=== PATIENT | male | born 1985 | race Caucasian/White ===

== ENCOUNTER 2018-02-04 17:21 | Emergency (ER) | payer BC, OTHER, SELFPAY ==
[2018-02-04 17:23] VITALS: BP 148/102; PULSE 107; RESP 16; TEMP 36.7; O2SAT 96; BMI 34.3
--- NOTE | 2018-02-04 17:56 | CT_ITS ---
STUDY: CT ABDOMEN AND PELVIS WITH CONTRAST REASON FOR EXAM: Male, 32 years old. Abdominal pain. Rectal bleeding RADIATION DOSAGE (If Supplied By Facility): CTDIvol = ( 24.18 ) mGy, DLP = ( 1515.28 ) mGycm TECHNIQUE: Transaxial images were obtained from the dome of the diaphragm to the symphysis pubis with oral contrast. 100 ml of Isovue 300 contrast was administered. Sagittal and coronal images were reconstructed. Individualized dose optimization techniques were used for this CT. COMPARISON: None. FINDINGS: The visualized lung bases are unremarkable. The visualized portions of the heart are within normal limits. Normal liver. Normal gallbladder and extrahepatic biliary system. There is mild splenomegaly. Normal pancreas. Normal bilateral adrenal glands. Normal right kidney. Normal left kidney. Normal visualized stomach. Normal small intestine. There is mild diffuse wall thickening of the descending colon. The appendix is visualized and appears normal. Normal abdominal aorta. Normal inferior vena cava. Normal retroperitoneum. Normal urinary bladder. There is no free fluid in the abdomen or pelvis. Normal abdominal wall. Normal osseous structures. CT/Abdomen/Pelvis WITH Contrast IMPRESSION: Colitis on the left could be infectious or inflammatory. No obstruction. Splenomegaly. Electronically Signed: Myron Narvaez MD at 20:28 EST , Service support ,
--- NOTE | 2018-02-04 17:58 | ED.VISSUMM ---
- ER Visit Summary Date of Service: 02/04/18 Chief Complaint: Abdominal pain, bloody stools History of Present Illness: The patient is a 32 M patient states awoken this morning right side abdominal pain with loose stools. States total 4, last time prior to arrival states was bloody. There is no clots. States the chills and sweats. No abdominal surgeries. No anticoagulation medicines. States occasional sharp sensations in the right side. Denies any family history of history of any Crohn's disease or ulcerative colitis. No similar symptoms in the past. States he did drink alcohol last night. No past medical history. Physical Examination: General: Alert and oriented ?3, no acute distress HEENT: Normocephalic, atraumatic. Moist mucosa membranes Neck: supple, nontender. Cardiovascular: Regular rate and rhythm, no murmurs Respiratory: Normal breath sounds, symmetric, no distress Abdomen: Soft,mild right side, nondistended. Negative Mixon's or McBurney's tenderness. No rebound or guarding Rectal: No hemorrhoids, no gross blood on finger. Guaiac positive Extremities: Nontender, no edema, pulses intact ?4 Neuro: no focal neurological deficits. Test Results: White count 7.7 hemoglobin 15.3. Creatinine 0.87. Lipase 75. Liver enzymes slightly elevated ALT 76 AST 39. Hepatitis panel sent and pending. CT scan with contrast notes thickening descending colon concerns for infectious versus inflammatory colitis. Emergency Department Course and Treatment: Patient nonsurgical abdomen. Discussed right side abdominal pain workup to rule out thickening of bowels for concerns for Crohn's versus ulcerative colitis. Later spoke that his uncle does have Crohn's disease. Labs are stable. He is Hemoccult positive. CT scan did note thickening descending colon. He will be placed on Cipro and Flagyl. Discussed alcohol hold while on Flagyl. He is given follow-up with Dr. Espinoza on-call surgeon for outpatient reevaluation and follow-up colonoscopy. Able to obtain a stool sample which was sent for evaluation. Treatment Plan: [] Disposition: Discharge Impression: 1. Abdominal pain 2. Colitis This note was generated with [employer] dictation software. It may contain incorrect words, spelling, and punctuation that were not noted in review of the chart prior to signing ED Disposition - Plan for ED Patient: Disposition: Home or Assisted Living Chief Complaint: Abd Pain Diagnosis: Colitis, Abdominal pain Instructions: ED Diverticulitis Prescriptions: Oxycodone HCl/Acetaminophen [Percocet 5/325] 1 tablet PO Q6H PRN PRN 3 Days #12 tablet PRN Reason: Pain Metronidazole [Flagyl] 500 mg PO Q8H #30 tablet Ciprofloxacin [Cipro] 500 mg PO BID #20 tablet Referrals: Care Physician,No Primary [Primary Care Provider] - Broderick Meza MD [STAFF PHYSICIAN] - 5-7 Days Additional Instructions: Thickening descending colon. Take antibiotics as prescribed. Follow-up with Dr. Meza outpatient reevaluation. Withhold alcohol while on Flagyl.
[2018-02-04] MEDS: 0.9% Normal Saline 1,000 ML 125 ML IV (18:11)
[2018-02-04 18:25] LABS: Absolute Lymphocyte Count 1.48 X10^3/ul (0.83-4.51); Absolute Neutrophil Count 5.4 X10^3/uL (2.0-7.7); Basophil# 0.02 X10^3/uL; Basophil% 0.3 % (0-1); Eosinophil# 0.18 X10^3/uL; Eosinophils% 2.3 % (0-5); Hematocrit 43.6 % (40-54); Hemoglobin 15.3 g/dl (13.0-16.5); Lymphocyte # 1.48 X10^3/ul (4.0); Lymphocyte % 19.3 % (19-41); Mean Corp Hgb Conc 35.1 g/gl (32-36); Mean Corpuscular Hgb 30.8 pg (27.0-32.0); Mean Corpuscular Volume 87.9 fL (80-94); Mean Platelet Vol. 10.4 fl (6.2-12.0); Monocyte# 0.56 X10^3/uL; Monocyte% 7.3 % (0-10); Neutrophil # 5.42 X10^3/uL (2.7-7.7); Neutrophil % 70.7 % (47-70); Platelet Count 154 K/mm3 (150-450); RBC Distribution Width CV 12.8 % (11.6-14.6); RBC Distribution Width SD 41.1 fl (35.1-43.9); Red Blood Count 4.96 M/mm3 (4.6-6.2); White Blood Count 7.7 K/mm3 (4.4-11.0)
[2018-02-04 18:37] LABS: ALB/GLOB Ratio 1.1 RATIO (0.9-2.4); AST(SGOT) 39 U/L (15-37); Alanine Aminotransfer ALT/SGPT 76 U/L (16-61); Albumin, Serum 3.9 g/dL (3.2-5.0); Alkaline Phosphatase 67 U/L (45-117); Anion Gap 7 (5-15); BUN 14 mg/dL (7-18); Calcium,Total 8.5 mg/dL (8.5-10.1); Chloride 105 mmol/L (98-107); Creatinine, Serum 0.87 mg/dL (0.70-1.30); EST Glomerular Filtration Rate 106 mL/min (>60); Est Glom Filt Rate - Afr Amer 129 mL/min (>60); Estimated Creatinine Clearance 144.34 ml/min; Globulin 3.5 g/dL (2.2-4.2); Glucose 131 mg/dL (74-106); Lipase 75 U/L (73-393); Potassium 3.6 mmol/L (3.5-5.1); Protein, Total 7.4 g/dL (6.4-8.2); Sodium Level 139 mmol/L (136-145)
[2018-02-04 18:41] LABS: POSITIVE COUNT NO; POSITIVE DIFFERENTIAL NO; POSITIVE MORPHOLOGY NO
[2018-02-04 19:03] LABS: International Normalized Ratio 1.1; Prothrombin Time (Protime)PT. 13.7 SECONDS (11.7-14.9)
[2018-02-04 19:04] LABS: Partial Thromboplast Time 25.8 Seconds (24.1-36.2)
[2018-02-04] MEDS: Morphine 4 MG/ML Syringe IV (20:33)
[2018-02-04 20:34] VITALS: BP 163/114; PULSE 94; RESP 18; O2SAT 95
[2018-02-04] MEDS: Ciprofloxacin 500 MG Tablet PO (21:05)
[2018-02-04] MEDS: metroNIDAZOLE 500 MG Tablet PO (21:06)
[2018-02-04 21:14] VITALS: RESP 18
[2018-02-06 06:07] LABS: HEPATITIS B SURFACE AG Negative (Negative); Hepatitis A IgM Antibody Negative (Negative); Hepatitis B Core AB IgM Negative (Negative)
[2018-02-06 10:22] LABS: Hep C Antibodies <0.1 s/co ratio (0.0-0.9)
== END 2018-02-04 21:14 | disposition home or self-care (01) ==
PROVIDERS: Emergency Provider Emergency Medicine
DX: K52.9 Noninfective gastroenteritis and colitis, unspecified (principal); R10.9 Unspecified abdominal pain; Z87.891 Personal history of nicotine dependence
CPT/HCPCS: 36415; 74177; 80053; 80074; 82274; 83690; 85025; 85610; 85730; 96361; 96374; 99283; J7030; Q9967; A4216

== ENCOUNTER 2019-04-11 07:38 | Emergency (ER) | payer BC, SELFPAY ==
[2019-04-11 07:39] VITALS: BP 144/95; PULSE 100; RESP 17; TEMP 36.7; O2SAT 96; BMI 37.5
--- NOTE | 2019-04-11 08:05 | CT_ITS ---
STUDY: CT ABDOMEN AND PELVIS WITH CONTRAST REASON FOR EXAM: Male, 33 years old. LOW ABDOMEN PAIN X TODAY RADIATION DOSAGE (If Supplied By Facility): CTDIvol = ( 15.41 ) mGy, DLP = ( 1450.15 ) mGycm TECHNIQUE: Transaxial images were obtained from the dome of the diaphragm to the symphysis pubis without oral contrast. Oral and amp; IV Gastrografin and amp; 100mL Isovue-300 was administered. Sagittal and coronal images were reconstructed. Individualized dose optimization techniques were used for this CT. COMPARISON: Comparison is made with prior study dated February 04, 2018. FINDINGS: Minimal degree of dependent bibasilar atelectasis. The visualized portions of the heart are within normal limits. There is decreased attenuation of the liver consistent with steatosis. Mild hepatomegaly. Normal gallbladder and extrahepatic biliary system. There is mild splenomegaly. Normal pancreas. Normal bilateral adrenal glands. Normal right kidney. Normal left kidney. Normal visualized stomach. Normal small intestine. Normal colon. The appendix is visualized and appears normal. Small lymph nodes are seen within the mesentery in the right lower quadrant. This may represent mesenteric adenitis. Normal abdominal aorta. Normal inferior vena cava. Normal retroperitoneum. Normal urinary bladder. Normal abdominal wall. Normal osseous structures. CT/Abdomen/Pelvis WITH Contrast IMPRESSION: Mild hepatosplenomegaly. Diffuse fatty infiltration of the liver. Small lymph nodes are seen in the mesentery in the right lower quadrant suggestive of mild mesenteric adenitis. Electronically Signed: Shad Salazar, at 10:08 EST , Service support ,
--- NOTE | 2019-04-11 08:07 | ED.DCSUM_ITS ---
History of Present Illness Chief Complaint: Abd Pain Informant: Patient Onset: Today Context: Gradual Onset Timing: Waxes and wanes Current Severity: Mild Maximum Severity: Severe Narrative: Patient presents with intermittent abdominal cramping since 3 AM this morning. He states he initially had difficulty having a bowel movement. He did have a solid stool followed by 2 rounds of diarrhea. He then started passing blood with the stool. Patient denies fever or chills. No prior abdominal surgeries. Patient was seen just over a year ago with similar symptoms and diagnosed with colitis. He did follow-up for colonoscopy following this and it was unremarkable. Past Medical History - Allergies and Home Meds Allergies/Adverse Reactions: Allergies No Known Allergies Allergy (Verified 04/11/19 07:39) Primary Care Physician: [facility] [Primary Care Provider] - Prior records reviewed: Yes Past Medical History: None Lives: Spouse/ Significant Other Smoking Status: Former smoker Review of Systems General: Denies: Chills, Fever Eyes: Denies: Visual changes - bilaterally ENT: Denies: Bilateral ear pain Cardiovascular: Denies: Chest pain Respiratory: Denies: Dyspnea Gastrointestinal: Reports: Abdominal pain, Diarrhea, Hematochezia Genitourinary: Denies: Dysuria Musculoskeletal: Denies: Back pain, Extremity Pain Skin: Denies: Rash Neurological: Denies: Headache Hematologic: Denies: Easy bruising Allergy: Denies: Uticaria Physical Exam Vital Signs/Narrative: Vital Signs Temp Pulse Resp BP Pulse Ox 04/11/19 07:39 98.0 F 100 17 144/95 H 96 Inital Vital Signs reviewed: Yes General: Well nourished, Well developed Head: Normocephalic ENT: Moist mucous membranes Neck: Supple Cardiovascular: Regular rate, Regular rhythm Respiratory: No distress, CTA bilaterally Abdomen: Soft, Tender - Minimal tenderness in the suprapubic and left lower quadrant., Hypoactive bowel sounds. Negative for: Guarding, Rebound tenderness Extremities: Nontender Skin: Normal color Neurological: Alert, Oriented x3 Psychological: Normal affect Diagnostic/Tx/Re-eval Impressions Abdomen/Pelvis CT 04/11/19 08:05 IMPRESSION: Mild hepatosplenomegaly. Diffuse fatty infiltration of the liver. Small lymph nodes are seen in the mesentery in the right lower quadrant suggestive of mild mesenteric adenitis. Electronically Signed: Shad Salazar, at 10:08 EST , Service support , 04/11/19 08:05 Abdomen/Pelvis WITH Contrast [CT] Stat Laboratory Results 04/11/19 04/11/19 07:55 07:55 WBC 12.8 H RBC 5.33 Hgb 16.0 Hct 46.0 MCV 86.3 MCH 30.0 MCHC 34.8 RDW Std Deviation 39.3 RDW Coeff of Johnny 12.7 Plt Count 178 MPV 10.5 Immature Gran % (Auto) 0.300 Neut % (Auto) 81.6 H Lymph % (Auto) 10.2 L Waldo % (Auto) 6.3 Eos % (Auto) 1.1 Baso % (Auto) 0.5 Absolute Neuts (auto) 10.4 H Absolute Lymphs (auto) 1.30 Nucleated RBC % 0 Sodium 140 Potassium 4.1 Chloride 109 H Carbon Dioxide 26.0 Anion Gap 5 BUN 16 Creatinine 0.87 Estim Creat Clear Calc 146.88 Est GFR (MDRD) Af Amer 129 Est GFR (MDRD) Non-Af 106 BUN/Creatinine Ratio 18.4 Glucose 143 H Calcium 9.1 - Medical Decision Making The morphine, Zofran, Bentyl, and IV fluids. On repeat evaluation patient states pain is returning although had been well controlled. Test results are discussed with him. At this time patient will be given Bentyl and Molena for home. I will write him a prescription for antibiotics but he will take a [id number] approach. If he continues to have diarrhea with blood in his stool over the next 2 days he is to the antibiotics and follow-up closely. Patient is comfortable with this plan. ED Disposition - Plan for ED Patient: Disposition: Home or Assisted Living Diagnosis: Mesenteric adenitis Instructions: Adenitis, Mesenteric Prescriptions: Dicyclomine HCl [Bentyl] 20 mg PO TIDAC #20 cap Transmission Status: Pending to [facility] Ciprofloxacin [Cipro] 500 mg PO BID #14 tablet metroNIDAZOLE [Flagyl] 500 mg PO Q6H #40 tablet Hydrocodone Bitart/Apap 5-325 [Molena 5MG-325MG] 1 tablet PO Q6H PRN PRN 3 Days #10 tablet PRN Reason: Pain Transmission Status: Received by [facility] [facility]errals[facility] [Primary Care Provider] - 3-5 Days if not improving
[2019-04-11 08:21] LABS: Absolute Neutrophil Count 10.4 X10^3/uL (2.0-7.7); Basophil# 0.06 X10^3/uL; Basophil% 0.5 % (0-1); Eosinophil# 0.14 X10^3/uL; Eosinophils% 1.1 % (0-5); Lymphocyte % 10.2 % (19-41); Mean Corp Hgb Conc 34.8 g/dL (32-36); Mean Corpuscular Volume 86.3 fL (80-94); Mean Platelet Vol. 10.5 fl (6.2-12.0); Monocyte# 0.81 X10^3/uL; Monocyte% 6.3 % (0-10); NRBC Flagged by Analyzer 0 % (0-5); Neutrophil # 10.42 X10^3/uL (2.7-7.7); Neutrophil % 81.6 % (47-70); Platelet Count 178 K/mm3 (150-450); RBC Distribution Width CV 12.7 % (11.6-14.6); RBC Distribution Width SD 39.3 fl (35.1-43.9); Red Blood Count 5.33 M/mm3 (4.6-6.2); White Blood Count 12.8 K/mm3 (4.4-11.0)
[2019-04-11] MEDS: Ondansetron 4 MG/2 ML Vial IV (08:24)
[2019-04-11] MEDS: Morphine 4 MG/ML Syringe IV ×2 (08:24→10:51)
[2019-04-11] MEDS: 0.9% Normal Saline 1,000 ML 1000 ML IV (08:25)
[2019-04-11] MEDS: 0.9% Normal Saline 1,000 ML 150 ML IV (08:25)
[2019-04-11] MEDS: Dicyclomine 10 MG Capsule 20 MG PO (08:25)
[2019-04-11 08:30] LABS: Anion Gap 5 (5-15); BUN 16 mg/dL (7-18); BUN/Creat Ratio 18.4 RATIO (10-20); Calcium,Total 9.1 mg/dL (8.5-10.1); Chloride 109 mmol/L (98-107); Creatinine, Serum 0.87 mg/dL (0.70-1.30); EST Glomerular Filtration Rate 106 mL/min (>60); Est Glom Filt Rate - Afr Amer 129 mL/min (>60); Estimated Creatinine Clearance 146.88 ml/min; Glucose 143 mg/dL (74-106); Potassium 4.1 mmol/L (3.5-5.1); Sodium Level 140 mmol/L (136-145)
[2019-04-11 10:29] VITALS: BP 169/102; O2SAT 95
== END 2019-04-11 11:14 | disposition home or self-care (01) ==
PROVIDERS: Emergency Provider Emergency Medicine
DX: I88.0 Nonspecific mesenteric lymphadenitis (principal); Z87.891 Personal history of nicotine dependence; R16.2 Hepatomegaly with splenomegaly, not elsewhere classified; K76.0 Fatty (change of) liver, not elsewhere classified
CPT/HCPCS: 74177; 80048; 85025; 96361; 96374; 96375; 96376; 99283; J7030; Q9967; A4216; J2405